=== PATIENT | male | born 1935 | race Caucasian/White ===

== ENCOUNTER 2019-06-07 07:16 | Day surgery (SDC) | payer MEDICARE, OTHER ==
[2019-06-07] MEDS ORDERED: Midazolam* 1 MG/ML 2 ML VIAL (2 MG) ONE ×2 (08:04→08:07)
--- NOTE | 2019-06-07 09:02 | OP ---
DATE OF OPERATION: 06/07/19 - [facility] DATE OF : 39 SURGEON: Andres Escobar MD ANESTHESIA: Monitored anesthesia care. PREOPERATIVE DIAGNOSIS: Cataract, right eye. POSTOPERATIVE DIAGNOSIS: Cataract, right eye. OPERATIVE PROCEDURE: Extracapsular cataract extraction of the right eye with intraocular lens implant. IMPLANT: SN60WF 22.5 diopter lens to the right eye. COMPLICATIONS: None. DESCRIPTION OF PROCEDURE: The patient was given phenylephrine 2.5 % and cyclopentolate 1% eye drops to the operative eye in the preoperative area. The patient was taken to the operating room where a time-out was taken to identify the correct patient, site, and side of surgery. The patient's right eye was prepped and draped in the usual sterile fashion with 5% Betadine. A second time- out was taken to verify the correct patient, side, and site of surgery, as well as the correct lens implant. A lid speculum was placed to the right eye. A 1mm paracentesis blade was used to make a clear corneal incision. Preservative-free 1% lidocaine was injected into the anterior chamber. DisCoVisc was then injected into the anterior chamber. A 2.75 mm keratome blade was used to make a triplanar incision. A cystotome initiated a capsulorrhexis, which was completed with Utrata forceps in a continuous and curvilinear manner. Hydrodissection of the lens was performed with BSS on a cannula. The lens could be spun in a capsular bag. The phacoemulsification handpiece was used with a divide-and- conquer technique to remove the nucleus. The I/A handpiece then removed the residual cortical lens material. DisCoVisc was injected to inflate the capsular bag. The planned SN60WF 22.5 diopter lens was injected into the capsular bag. The residual DisCoVisc was removed from the eye with the I/A handpiece. The corneal incisions were hydrated and no leaks occurred at physiologic pressure around 20 mmHg per palpation. The lid speculum was removed and drapes were removed. Maxitrol ointment was placed to the surface of the operative eye. An adhesive patch and shield was then placed on the operative eye. The patient was taken to the postoperative area in stable condition. [id number]/[facility] #: [id number] [facility]
[2019-06-07 09:47] VITALS: BP 112/57
[2019-06-07] MEDS ORDERED: Cyclopentolate 1% OPTH.SOL* 2 ML BTL ONE (13:25)
[2019-06-07] MEDS ORDERED: Lidocaine 1% MPF ** 5 ML VIAL ONE (13:25)
[2019-06-07] MEDS ORDERED: Ketorolac 0.5% OPHTH (NF) 0.5 % 5 ML BTL ONE (13:25)
[2019-06-07] MEDS ORDERED: Tetracaine 0.5% OPTH.SOL 4 ML* 1 DROP BTL ONE (13:25)
[2019-06-07] MEDS ORDERED: acetaZOLAMIDE TAB* 250 MG ONE (13:25)
[2019-06-07] MEDS ORDERED: Tropicamide 1% OPTH.SOL* BTL ONE (13:25)
[2019-06-07] MEDS ORDERED: Povidone Iodine 5% OPTH* 30 ML BTL ONE (13:25)
[2019-06-07] MEDS ORDERED: Neomycin/Polymy/Dex OPHTH.OIN* 3.5 GM ONE (13:25)
[2019-06-07] MEDS ORDERED: Phenylephrine OPHTH SOL 2.5%* 2 ML ONE (13:25)
== END 2019-06-07 09:05 | disposition home or self-care (01) ==
LOC: OREAST 07:16
PROVIDERS: ATTEND Student in an Organized Health Care Education/Training Program
DX: H25.11 Age-related nuclear cataract, right eye (principal); H17.12 Central corneal opacity, left eye; R73.03 Prediabetes; E78.5 Hyperlipidemia, unspecified
CPT/HCPCS: A9270-GY; J2250; V2632

== ENCOUNTER 2019-06-14 07:12 | Day surgery (SDC) | payer MEDICARE, OTHER ==
[2019-06-14] MEDS ORDERED: Midazolam* 1 MG/ML 2 ML VIAL (2 MG) ONE (07:42)
[2019-06-14] MEDS ORDERED: Tropicamide 1% OPTH.SOL* BTL ONE (08:28)
[2019-06-14] MEDS ORDERED: acetaZOLAMIDE TAB* 250 MG ONE (08:28)
[2019-06-14] MEDS ORDERED: Neomycin/Polymy/Dex OPHTH.OIN* 3.5 GM ONE (08:28)
[2019-06-14] MEDS ORDERED: Phenylephrine OPHTH SOL 2.5%* 2 ML ONE (08:28)
[2019-06-14] MEDS ORDERED: Tetracaine 0.5% OPTH.SOL 4 ML* 1 DROP BTL ONE (08:28)
[2019-06-14] MEDS ORDERED: Ketorolac 0.5% OPHTH (NF) 0.5 % 5 ML BTL ONE (08:28)
[2019-06-14] MEDS ORDERED: Povidone Iodine 5% OPTH* 30 ML BTL ONE (08:28)
[2019-06-14] MEDS ORDERED: Cyclopentolate 1% OPTH.SOL* 2 ML BTL ONE (08:28)
[2019-06-14] MEDS ORDERED: Lidocaine 1% MPF ** 5 ML VIAL ONE (08:28)
[2019-06-14 09:08] VITALS: BP 115/57
--- NOTE | 2019-06-14 09:27 | OP ---
DATE OF OPERATION: 06/14/19 - [facility] DATE OF : 39 SURGEON: Andres Escobar MD ANESTHESIA: Monitored anesthesia care. PREOPERATIVE DIAGNOSIS: Cataract, left eye. POSTOPERATIVE DIAGNOSIS: Cataract, left eye. OPERATIVE PROCEDURE: Extracapsular cataract extraction of the left eye with intraocular lens implant. IMPLANT: SN60WF 20.5 diopter lens to the left eye. COMPLICATIONS: None. DESCRIPTION OF PROCEDURE: The patient was given phenylephrine 2.5 % and cyclopentolate 1% eye drops to the operative eye in the preoperative area. The patient was taken to the operating room where a time-out was taken to identify the correct patient, site, and side of surgery. The patient's left eye was prepped and draped in the usual sterile fashion with 5% Betadine. A second time- out was taken to verify the correct patient, side, and site of surgery, as well as the correct lens implant. A lid speculum was placed to the left eye. A 1mm paracentesis blade was used to make a clear corneal incision. Preservative-free 1% lidocaine was injected into the anterior chamber. DisCoVisc was then injected into the anterior chamber. A 2.75 mm keratome blade was used to make a triplanar incision. A cystotome initiated a capsulorrhexis, which was completed with Utrata forceps in a continuous and curvilinear manner. Hydrodissection of the lens was performed with BSS on a cannula. The lens could be spun in a capsular bag. The phacoemulsification handpiece was used with a divide-and- conquer technique to remove the nucleus. The I/A handpiece then removed the residual cortical lens material. DisCoVisc was injected to inflate the capsular bag. The planned SN60WF 20.5 diopter lens was injected into the capsular bag. The residual DisCoVisc was removed from the eye with the I/A handpiece. The corneal incisions were hydrated and no leaks occurred at physiologic pressure around 20 mmHg per palpation. The lid speculum was removed and drapes were removed. Maxitrol ointment was placed to the surface of the operative eye. An adhesive patch and shield was then placed on the operative eye. The patient was taken to the postoperative area in stable condition. [id number]/[facility] #: [id number] [facility]
== END 2019-06-14 09:00 | disposition home or self-care (01) ==
LOC: OREAST 07:12
PROVIDERS: ATTEND Student in an Organized Health Care Education/Training Program
DX: H25.12 Age-related nuclear cataract, left eye (principal); H17.12 Central corneal opacity, left eye; Z96.1 Presence of intraocular lens; Z79.82 Long term (current) use of aspirin; I73.00 Raynaud's syndrome without gangrene; G80.9 Cerebral palsy, unspecified; E78.5 Hyperlipidemia, unspecified; Z85.46 Personal history of malignant neoplasm of prostate
CPT/HCPCS: A9270-GY; J2250; V2632

== ENCOUNTER 2023-03-18 19:04 | Observation (INO) ==
[2023-03-18] MEDS ORDERED: Lidocaine 1% MPF 2 ML VIAL SUBCUT ONE (19:45)
[2023-03-18 20:40] LABS: ABS Eosinophils 0.1 10^3/uL (0.0-0.5); ABS Monocytes 0.9 10^3/uL (0.0-1.1); ABS Neutrophils 5.9 10^3/uL (1.5-7.6); ABS Nucleated RBC 0.01 10^3/ul; Eosinophil % 1.6 %; Hematocrit 38.7 % (38-53); Hemoglobin 13.1 g/dL (13.2-16.3); Lymphocyte % 12.2 %; Mean Corpuscular Hemoglobin 30.8 pg (27-33); Mean Corpuscular Volume 90.6 fL (80-97); Mean Platelet Volume 8.4 fL (7.5-11.2); Nucleated Red Blood Cells % 0.2 /100 WBC (0.0-0.4); Platelet Count 165 10^3/uL (150-450); Red Blood Count 4.27 10^6/uL (4.06-5.63); Red Cell Distribution Width 13.8 % (12-17)
[2023-03-18 21:13] LABS: Albumin/Globulin Ratio 1.6 (1-3); Calcium 8.7 mg/dL (8.6-10.3); Creatinine, Serum 0.68 mg/dL (0.67-1.17); Globulin 2.5 g/dL (2-4); Magnesium 2.2 mg/dL (1.9-2.7); Potassium 3.9 mmol/L (3.5-5.0); Total Bilirubin 0.5 mg/dL (0.2-1.0); Total Protein 6.5 g/dL (6.4-8.9); eGFR CKD-EPI 91.1 (>60)
[2023-03-18] MEDS ORDERED: Acetaminophen IV 1 GM/100ML 1,000 MG/100 ML BAG IV PRN (23:08)
[2023-03-18] MEDS ORDERED: Enoxaparin 40 MG/0.4 ML SYR SUBCUT SCH (23:45)
[2023-03-19 07:37] LABS: ABS Eosinophils 0.1 10^3/uL (0.0-0.5); ABS Monocytes 0.7 10^3/uL (0.0-1.1); ABS Neutrophils 3.9 10^3/uL (1.5-7.6); ABS Nucleated RBC 0.01 10^3/ul; Eosinophil % 2.3 %; Hematocrit 37.9 % (38-53); Hemoglobin 12.7 g/dL (13.2-16.3); Lymphocyte % 17.5 %; Mean Corpuscular Hemoglobin 30.2 pg (27-33); Mean Corpuscular Hgb Conc 33.4 g/dL (31-36); Mean Corpuscular Volume 90.3 fL (80-97); Mean Platelet Volume 8.3 fL (7.5-11.2); Nucleated Red Blood Cells % 0.1 /100 WBC (0.0-0.4); Platelet Count 154 10^3/uL (150-450); Red Cell Distribution Width 13.6 % (12-17); White Blood Count 5.9 10^3/uL (3.6-10.2)
[2023-03-19 08:05] LABS: Calcium 8.2 mg/dL (8.6-10.3); Creatinine, Serum 0.58 mg/dL (0.67-1.17); Potassium 3.7 mmol/L (3.5-5.0); eGFR CKD-EPI 95.6 (>60)
[2023-03-19 08:51] LABS: Urine Appearance Clear; Urine Bilirubin Negative (Negative); Urine Blood Negative (Negative); Urine Color Yellow; Urine Glucose Negative (Negative); Urine Ketones Negative (Negative); Urine Nitrite Negative (Negative); Urine Protein Negative (Negative); Urine Urobilinogen Negative (Negative)
[2023-03-19] MEDS: Aspirin EC 81 mg TAB.EC (enteric coated) PO SCH (09:34)
[2023-03-19] MEDS: Cholecalciferol (VIT D3) 1,000 unit TAB PO SCH (09:34)
[2023-03-19] MEDS ORDERED: Lactated Ringers 1000 ml BAG 1,000 ML IV SCH (14:00)
[2023-03-19] MEDS ORDERED: Enoxaparin 80 MG/0.8 ML SYR SUBCUT SCH (17:00)
[2023-03-19] MEDS ORDERED: Enoxaparin 40 MG/0.4 ML SYR SUBCUT SCH (18:00)
[2023-03-19] MEDS: Potassium Chlor 20 meq TAB.ER PO SCH ×2 (18:14→19:42)
[2023-03-20 06:03] LABS: ABS Eosinophils 0.2 10^3/uL (0.0-0.5); ABS Lymphocytes 1.6 10^3/uL (1.0-4.8); ABS Monocytes 0.9 10^3/uL (0.0-1.1); ABS Neutrophils 3.6 10^3/uL (1.5-7.6); Eosinophil % 2.5 %; Hemoglobin 13.2 g/dL (13.2-16.3); Lymphocyte % 25.1 %; Mean Corpuscular Hemoglobin 30.7 pg (27-33); Mean Corpuscular Hgb Conc 33.8 g/dL (31-36); Mean Corpuscular Volume 90.8 fL (80-97); Mean Platelet Volume 8.8 fL (7.5-11.2); Nucleated Red Blood Cells % 0.1 /100 WBC (0.0-0.4); Platelet Count 148 10^3/uL (150-450); Red Blood Count 4.29 10^6/uL (4.06-5.63); Red Cell Distribution Width 13.6 % (12-17); White Blood Count 6.2 10^3/uL (3.6-10.2)
[2023-03-20 06:20] LABS: Calcium 8.6 mg/dL (8.6-10.3); Creatinine, Serum 0.72 mg/dL (0.67-1.17); Magnesium 2.2 mg/dL (1.9-2.7); Potassium 4.6 mmol/L (3.5-5.0); eGFR CKD-EPI 89.5 (>60)
[2023-03-20] MEDS ORDERED: Lidocaine 1% w EPI 1:100,000 MDV 20 ML VIAL ONE (07:20)
[2023-03-20] MEDS: Cholecalciferol (VIT D3) 1,000 unit TAB PO SCH (10:50)
[2023-03-20] MEDS: Aspirin EC 81 mg TAB.EC (enteric coated) PO SCH (10:51)
[2023-03-20 14:41] VITALS: BP 132/60
== END 2023-03-20 15:23 | disposition home or self-care (01) ==
LOC: EDHOLD 19:04 → ED 19:04 → SUATTDRO 23:05 → EDHOLD 03-19 17:27 → MEDTELE 03-19 17:52
PROVIDERS: ADMIT Internal Medicine; ATTEND Hospitalist